=== PATIENT | female | born 1995 | race Two or more races ===

== ENCOUNTER 2018-11-14 16:56 | Emergency (ER) | payer SELFPAY ==
[~2018-11-14] VITALS: Ht 152.4 cm; Wt 72.6 kg
[2018-11-14 17:16] VITALS: BP 120/57
[2018-11-14] MEDS ORDERED: PHENAZOPYRIDINE HCL 100 MG TAB PO ONE (18:00)
[2018-11-14 18:09] LABS: Urine Bacteria FEW /hpf (None Seen); Urine Blood Negative /uL (Negative); Urine Hyaline Cast FEW /lpf (0 - 2); Urine Mucus FEW (None Seen); Urine Specific Gravity 1.034 (1.001-1.035); Urine WBC 64 /hpf (0 - 5)
== END 2018-11-14 18:19 | disposition home or self-care (01) ==
LOC: ER 16:56
DX: N39.0 Urinary tract infection, site not specified (principal)
CPT/HCPCS: 81001; 81025

== ENCOUNTER 2021-12-28 21:41 | Emergency (ER) | payer MEDICAID ==
[~2021-12-28] VITALS: Ht 165.1 cm; Wt 63.8 kg
[2021-12-28 23:20] VITALS: BP 97/64
[2021-12-30] MEDS ORDERED: AMOX-277 PO (09:26)
[2021-12-30] MEDS ORDERED: ACET-1158 PO (09:26)
== END 2021-12-29 05:13 | disposition left against medical advice (07) ==
LOC: ER 21:41
DX: R05.9 Cough, unspecified (principal); R51.9 Headache, unspecified; Z20.822 Contact with and (suspected) exposure to COVID-19; Z53.21 Procedure and treatment not carried out due to patient leaving prior to being seen by health care provider
CPT/HCPCS: 36415

== ENCOUNTER 2021-12-30 06:08 | Emergency (ER) | payer MEDICAID ==
[~2021-12-30] VITALS: Ht 152.4 cm; Wt 72.0 kg
[2021-12-30 07:57] VITALS: BP 124/70
[2021-12-30] MEDS ORDERED: AMOX-277 PO (09:26)
[2021-12-30] MEDS ORDERED: ACET-1158 PO (09:26)
== END 2021-12-30 09:37 | disposition home or self-care (01) ==
LOC: ER 06:08
DX: H66.92 Otitis media, unspecified, left ear (principal); J01.90 Acute sinusitis, unspecified; Z79.899 Other long term (current) drug therapy; Z79.2 Long term (current) use of antibiotics

== ENCOUNTER 2022-12-02 12:52 | Emergency (ER) | payer MEDICAID ==
[~2022-12-02] VITALS: Ht 152.4 cm; Wt 70.3 kg
[~2022-12-02 12:52] MED LIST: ACET500T58 PO; AMOX875T4 PO
[2022-12-02 15:21] VITALS: BP 103/63; PULSE 86; RESP 16; TEMP 97.9; O2SAT 96
[2022-12-02] MEDS ORDERED: DexAMETHasone SOD PHOS 10MG/1ML VIAL INJ IM ONE (15:30)
[2022-12-02] MEDS ORDERED: IBUP-1454 PO (15:50)
[2022-12-02] MEDS ORDERED: AUG875T PO (15:50)
== END 2022-12-02 16:01 | disposition home or self-care (01) ==
LOC: ER 12:52
DX: J06.9 Acute upper respiratory infection, unspecified (principal); Z79.1 Long term (current) use of non-steroidal anti-inflammatories (NSAID); Z79.899 Other long term (current) drug therapy
CPT/HCPCS: 96372; 99283; J1100

== ENCOUNTER 2023-03-05 10:05 | Emergency (ER) | payer MEDICAID ==
[~2023-03-05] VITALS: Ht 152.4 cm; Wt 68.1 kg
[~2023-03-05 10:05] MED LIST changes: +AUG875T PO; +IBUP-1454 PO
[2023-03-05] MEDS ORDERED: KETOROLAC TROMETH 60MG/2ML VIAL IM ONE (10:30)
[2023-03-05] MEDS ORDERED: ONDANSETRON ODT 4 MG TAB PO ONE (10:30)
[2023-03-05 10:31] VITALS: BP 106/58; PULSE 79; RESP 18; TEMP 98.6; O2SAT 99
[2023-03-05 11:18] LABS: Rapid Influenza A Negative (Negative); Rapid Influenza B Negative (Negative)
[2023-03-05 11:35] LABS: COVID19 ANTIGEN SOFIA FIA POSITIVE (NEGATIVE)
[2023-03-05] MEDS ORDERED: ZOFR4T PO (12:14)
[2023-03-05] MEDS ORDERED: ACET500T58 PO (12:14)
[2023-03-05] MEDS ORDERED: BENZ100C97 PO (12:14)
[2023-03-05] MEDS ORDERED: IBUP-1455 PO (12:14)
[2023-03-05] MEDS ORDERED: LORA10CA PO (12:14)
== END 2023-03-05 12:21 | disposition home or self-care (01) ==
LOC: ER 10:05
DX: U07.1 COVID-19 (principal)
CPT/HCPCS: 36415; 71046; 87426; 87804; 96372; 99284; J1885; Q0162

== ENCOUNTER 2024-10-26 11:27 | Emergency (ER) | payer MEDICAID ==
[~2024-10-26] VITALS: Ht 152.4 cm; Wt 68.7 kg
[~2024-10-26 11:27] MED LIST changes: +BENZ100C97 PO; +IBUP-1455 PO; +LORA10CA PO; +ZOFR4T PO
[2024-10-26] MEDS ORDERED: BENZ100C97 PO (12:16)
[2024-10-26] MEDS ORDERED: PROM1SOL4 PO (12:16)
[2024-10-26] MEDS ORDERED: IBUP1TAB5 PO (12:16)
[2024-10-26] MEDS ORDERED: CETI5TAB6 PO (12:16)
--- NOTE | 2024-10-26 12:17 | ED.PDOC ---
SOB-HPI HPI Comments 29-year-old female no pertinent MHx presents with a chief complaint of a n onproductive cough, rhinorrhea, sore throat x1 day. Symptoms are rated as mild to moderate No therapies tried at this time No other complaint or concerns Denies any sick contacts Denies fevers chills night sweats unintentional weight loss Denies persistent chest pain, shortness of breath, leg swelling Denies history of asthma nor any breathing conditions Denies history of pneumonia Denies recent international travel Chief Complaint: Flu like Time Seen by MD: 12:08 Primary Care Provider: NONE Reviewed notes: Nurses Notes, Medications, Allergies Information Source: Patient Mode of Arrival: Ambulatory Severity: Mild Timing: Hours Duration: Since onset, Hours Context: At Rest PE Risk Factors: None History of: None Prehospital treatment: None Modifying Factors: Nothing Associated Signs and Symptoms: Cough, Sore Throat Past Medical History PAST MEDICAL HISTORY: Denies Surgical History: Denies all surgeries HEALTHCARE CONSULTING MANAGER History: No Pertinent HEALTHCARE CONSULTING MANAGER History Family History Family History: Unknown Social History Smoker: Non-Smoker Alcohol: Denies ETOH Use Drugs: Denies Drug Use Lives In: Home Constitutional: reports: chills; denies: diaphoresis, fatigue, fever, malaise, sweats, weakness, others EENTM: denies: blurred vision, double vision, ear bleeding, ear discharge, ear drainage, ear pain, ear ringing, eye pain, eye redness, hearing loss, mouth pain, mouth swelling, nasal discharge, nose bleeding, nose congestion, nose pain, photophobia, tearing, throat pain, throat swelling, voice changes, others Respiratory: reports: cough; denies: hemoptysis, orthopnea, SOB at rest, shortness of breath, SOB with excertion, stridor, wheezing, others Cardiovascular: denies: chest pain, dizzy spells, diaphoresis, Dyspnea on exertion, edema, irregular heart beat, left arm pain, lightheadedness, palpitations, PND, syncope, others Gastrointestinal: denies: abdomen distended, abdominal pain, blood streaked bowels, constipated, diarrhea, dysphagia, difficulty swallowing, hematemesis, melena, nausea, poor appetite, poor fluid intake, rectal bleeding, rectal pain, vomiting, others Genitourinary: denies: abnormal vagina bleeding, burning, dyspareunia, dysuria, flank pain, frequency, hematuria, incontinence, pain, , vagina discharge, urgency, others Neurological: denies: dizziness, fainting, headache, left sided numbness, left sided weakness, numbness, paresthesia, pre-existing deficit, right sided numbness, right sided weakness, seizure, speech problems, tingling, tremors, w eakness, others Musculoskeletal: denies: back pain, gout, joint pain, joint swelling, muscle pain, muscle stiffness, neck pain, others Integumetry: denies: bruises, change in color, change in hair/nails, dryness, laceration, lesions, lumps, rash, wounds, others Allergic/Immunocompromised: denies: Difficulty Healing, Frequent Infections, Hives, Itching, others Hematologic/Lymphatic: denies: anemia, blood clots, easy bleeding, easy bruising, swollen glands, others Endocrine: denies: excessive hunger, excessive sweating, excessive thirst, excessive urination, flushing, intolerance to cold, intolerance to heat, unexplained weight gain, unexplained weight loss, others Psychiatric: denies: anxiety, bipolar disorder, depression, hopeless, panic disorder, schizophrenia, sleepless, suicidal, others All Other Systems: Reviewed and Negative Physical Exam General Appearance: No Apparent Distress, Normal HEENT: Normal ENT Inspection, Pharynx Normal, TMs Normal Neck: Full Range of Motion, Non-Tender, Normal, Normal Inspection Respiratory: Chest Non-Tender, Lungs Clear, No Accessory Muscle Use, No Respiratory Distress, Normal Breath Sounds, Other (No tonsillar exidate, uvular Midline, MMM, no airway obstruction) Cardiovascular: No Murmur, No Gallop, Normal Peripheral Pulses, Regular Rate/Rhythm Breast Exam: Deferred Gastrointestinal: Non Tender, No Pulsatile Mass, Normal Bowel Sounds, Soft Genitalia: Deferred Pelvic: Deferred Rectal: Deferred Extremities: No calf tenderness, Normal range of motion, Non-tender, No pedal edema Musculoskeletal : Apperance: Normal Neurologic: Alert, No Motor Deficits, Normal Mood Cerebellar Function: Normal Reflexes: Normal Skin: Dry, Normal Color, Warm Lymphatic: No Adenopathy Was a procedure done? Was a procedure done?: No Differential Dx Differential Diagnosis: Anxiety, Asthma, Bronchitis, Sinusitis, Allergic Rhinitis, Otitis Media, Pharyngitis X-Ray, Labs, Meds, VS Vital Signs Date Time Temp Pulse Resp B/P (MAP) Pulse Ox O2 Delivery O2 Flow Rate FiO2 10/26/24 12:28 98.2 79 16 101/60 (74) 97 98.2 10/26/24 12:28 79 16 97 Room Air 10/26/24 12:00 98.3 78 16 106/57 (73) 96 98.3 X-Ray, Labs, Meds, VS Comment Patient arrives alert and oriented, ABC's intact, afebrile, vital signs stable, saturating well in room air The patient is overall well-appearing nontoxic on exam. On physical exam, respirations even and unlabored, clear to auscultation bilaterally. Oxygen stable on room air. Chest x-ray was obtained and interpreted independently by myself as not showing focal consolidation or lobar pneumonia Low suspicion of strep pharyngitis given physical exam findings and patient's presenting symptoms No signs of meningismus on exam Overall, the patient is well hydrated and nontoxic. Plan for symptomatic control for fever and pain as needed. The patient was able to tolerate p.o. intake in the ED. at this time, patient is safe for discharge home. The exam findings and plan discussed. We will discharge home with PCP follow up and strict return precautions. Discussed that cough can linger up to 6 weeks after viral URI Supportive care and return precautions discussed Counseled viral infection and explained that antibiotics would not be helpful in resolving the illness sooner. Recommended vitamin C, rest, handwashing, and symptomatic care. Expect 2-week course with possibly of cough lingering up to 6 weeks. Nonpharmacological remedies for fluids has been recommended as well Patient is stable for discharge at this time. External notes reviewed. Test results and diagnostic imaging interpreted. All diagnostic findings, discharge care, education and instructions provided Follow-up with PCP in 2 to 3 days Patient verbalized understanding and agreed to treatment plan Vital signs stable, afebrile, no acute distress noted Patient ambulatory with strong steady gait Advised to return precautions for any new or worsening symptoms, return to ER immediately for re-evaluation Patient is aware that the purpose of this visit was for an acute medical emergency requiring emergent stabilization. Chronic conditions, including malignancies have not been ruled out. Patient is instructed to follow up with PCP as directed and discharge instructions for continued care and workup. If unable to arrange follow-up, patient is to return to the emergency department for reassessment. Patient (parent or legal guardian if applicable) was given verbal and written discharge instructions and acknowledges understanding. Additional MDM Review of External, Non-ED records: External records reviewed. Discussion with independent historian (EMS, family) history obtained from the patient/parents (if applicable) at bedside Chronic conditions affecting care: None Social determinants of health affecting care: None Consideration of admission (observation or admission): I considered escalation of care to admission for this patient, however given the reassuring workup, the patient is safe for outpatient management. Discussion with the Radiology: No Tests considered but not performed: Prescription medication considered but not given: 12 lead EKG interpretation: Time of 1ST Reevaluation: 12:14 Reevaluation 1ST: Improved Patient Education/Counseling: Diagnosis, Treatment Family Education/Counseling: Diagnosis, Treatment SEPSIS Sepsis Screen Vital Signs Date Time Temp Pulse Resp B/P (MAP) Pulse Ox O2 Delivery O2 Flow Rate FiO2 10/26/24 12:28 98.2 79 16 101/60 (74) 97 98.2 10/26/24 12:28 79 16 97 Room Air 10/26/24 12:00 98.3 78 16 106/57 (73) 96 98.3 Departure 1 Departure Time of Disposition: 12:14 Impression: Primary Impression: Viral syndrome Disposition: 01 HOME / SELF CARE / HOMELESS Condition: Fair e-Prescriptions Ibuprofen Micronized (Ibuprofen) 600 Mg Tab 600 MG PO TIDPRN PRN for 10 Days, #30 TAB 0 Refills Prov: VINCENZO CAMPBELL NP 10/26/24 Promethazine-Dm (Promethazine Dm 6.25-15 mg/5Ml) 1 Autumn Autumn 5 ML PO TIDPRN PRN for 10 Days, #150 ML 0 Refills Prov: VINCENZO CAMPBELL AEROPHYSICS ENGINEER 10/26/24 Benzonatate (Benzonatate) 100 Mg Cap 1 CAP PO TID for 10 Days, #30 CAP 0 Refills Prov: VINCENZO CAMPBELL NP 10/26/24 Cetirizine Hcl (Cetirizine Hcl) 5 Mg Tab 10 MG PO DAILY for 10 Days, #20 TAB 0 Refills Prov: VINCENZO CAMPBELL NP 10/26/24 Critical Care Note Critical Care Time?: No Stability Stability form required: No Heart Score Heart Score: Heart Score Response (Comments) Value History N/A 0 EKG N/A 0 Age N/A 0 Risk Factors N/A 0 Troponin N/A 0 Total 0 I personally scribed for VINCENZO CAMPBELL NP ([email or web address]) on 10/26/24 at 12:23. Electronically submitted by Mukund Khan ([email or web address]). VINCENZO CAMPBELL NP Oct 26, 2024 12:17
[2024-10-26 12:28] VITALS: BP 101/60; PULSE 79; RESP 16; TEMP 98.2; O2SAT 97
== END 2024-10-26 13:24 | disposition home or self-care (01) ==
LOC: ER 11:27
DX: B34.9 Viral infection, unspecified (principal)

== ENCOUNTER 2025-01-09 11:47 | Emergency (ER) | payer MEDICAID ==
[~2025-01-09] VITALS: Ht 152.4 cm; Wt 74.9 kg
[~2025-01-09 11:47] MED LIST changes: +CETI5TAB6 PO; +IBUP1TAB5 PO; +PROM1SOL4 PO
[2025-01-09 13:55] LABS: COVID19 ANTIGEN SOFIA FIA NEGATIVE (NEGATIVE)
[2025-01-09] MEDS ORDERED: PROM1SOL4 PO (14:47)
[2025-01-09] MEDS ORDERED: AZIT-185 PO (14:47)
--- NOTE | 2025-01-09 14:47 | ED.PDOC ---
History of Present Illness HPI Comments 29-year-old female patient presents to the clinic for cough, fever, runny nose. Patient states that cough is productive of green-colored phlegm. Patient states his symptoms started 6-7 days ago. Chief Complaint: Flu like Time Seen by MD: 12:25 Primary Care Provider: PATRICIA Allergies: Coded Allergies: NO KNOWN ALLERGIES (Unverified , 11/14/18) Home Meds Active Scripts Promethazine-Dm (Promethazine Dm 6.25-15 mg/5Ml) 1 Autumn Autumn, 5 ML PO TID for 7 Da ys, #105 ML Prov:CELIO IRVIN MANAGER OB 01/09/25 Azithromycin (ZITHROMAX TABLET) 250 Mg Tb, 250 MG PO DAILY for 5 Days, #6 TAB Prov:CELIO IRVIN [facility] 01/09/25 Ibuprofen Micronized (Ibuprofen) 600 Mg Tab, 600 MG PO TIDPRN PRN for 10 Days, #30 TAB 0 Refills Prov:VINCENZO CAMPBELL COATER 10/26/24 Promethazine-Dm (Promethazine Dm 6.25-15 mg/5Ml) 1 Autumn Autumn, 5 ML PO TIDPRN PRN for 10 Days, #150 ML 0 Refills Prov:VINCENZO CAMPBELL COATER 10/26/24 Benzonatate (Benzonatate) 100 Mg Cap, 1 CAP PO TID for 10 Days, #30 CAP 0 Refills Prov:VINCENZO CAMPBELL COATER 10/26/24 Cetirizine Hcl (Cetirizine Hcl) 5 Mg Tab, 10 MG PO DAILY for 10 Days, #20 TAB 0 Refills Prov:VINCENZO CAMPBELL COATER 10/26/24 Benzonatate (Benzonatate) 100 Mg Cap, 1 CAP PO TID, #30 CAP Prov:NOLA CARRASCO PAC 03/05/23 Acetaminophen (Acetaminophen) 500 Mg Tab, 500 MG PO Q4HP PRN, #30 TAB Prov:NOLA CARRASCO PAC 03/05/23 Ibuprofen Micronized (Ibuprofen) 800 Mg Tab, 800 MG PO Q8HP PRN, #20 TAB Prov:NOLA CARRASCO PAC 03/05/23 Loratadine (Claritin) 10 Mg Cap, 10 MG PO DAILY for 14 Days, #14 CAP Prov:NOLA CARRASCO PAC 03/05/23 Ondansetron Odt 4MG Tab (ZOFRAN PO) 4 Mg Tb, 4 MG PO Q6HP PRN, #30 TAB ODT TAB-DISSOLVE IN MOUTH, THEN SWALLOW Prov:NOLA CARRASCO PAC 03/05/23 Ibuprofen (Ibuprofen) 600 Mg Tab, 600 MG PO TID for 10 Days, #30 TAB 0 Refills Prov:VINCENZO CAMPBELL COATER 12/02/22 Amoxicillin & Pot Clavulanate (AUGMENTIN TABLET) 875 Mg Tb, 875 MG PO BID for 10 Days, #20 TAB 0 Refills Prov:VINCENZO CAMPBELL COATER 12/02/22 Acetaminophen (Acetaminophen) 500 Mg Tab, 500 MG PO QIDP, #30 TAB 0 Refills Prov:GABRIELLA KELLY 12/30/21 Amoxicillin & Pot Clavulanate (Amoxicillin/Potassium Cla) 875 Mg Tab, 1 TAB PO BID for 7 Days, #14 TAB 0 Refills Prov:GABRIELLA KELLY 12/30/21 Mode of Arrival: Ambulatory Severity: Mild Timing: Days Past Medical History PAST MEDICAL HISTORY: Denies Surgical History: Denies all surgeries CHILD CARE History: No Pertinent CHILD CARE History Family History Family History: Reviewed,noncontributory to illness, Unknown Social History Smoker: Non-Smoker Alcohol: Denies ETOH Use Drugs: Denies Drug Use Lives In: Home Constitutional: denies: chills, diaphoresis, fatigue, fever, malaise, sweats, weakness, others EENTM: reports: nasal discharge, nose congestion Respiratory: reports: cough Cardiovascular: denies: chest pain, dizzy spells, diaphoresis, Dyspnea on exertion, edema, irregular heart beat, left arm pain, lightheadedness, palpitations, PND, syncope, others Gastrointestinal: denies: abdomen distended, abdominal pain, blood streaked bowels, constipated, diarrhea, dysphagia, difficulty swallowing, hematemesis, melena, nausea, poor appetite, poor fluid intake, rectal bleeding, rectal pain, vomiting, others Genitourinary: denies: abnormal vagina bleeding, burning, dyspareunia, dysuria, flank pain, frequency, hematuria, incontinence, pain, , vagina discharge, urgency, others Neurological: denies: dizziness, fainting, headache, left sided numbness, left sided weakness, numbness, paresthesia, pre-existing deficit, right sided numbness, right sided weakness, seizure, speech problems, tingling, tremors, weakness, others Musculoskeletal: denies: back pain, gout, joint pain, joint swelling, muscle pain, muscle stiffness, neck pain, others Integumetry: denies: bruises, change in color, change in hair/nails, dryness, laceration, lesions, lumps, rash, wounds, others Allergic/Immunocompromised: denies: Difficulty Healing, Frequent Infections, Hives, Itching, others Hematologic/Lymphatic: denies: anemia, blood clots, easy bleeding, easy bruising, swollen glands, others Endocrine: denies: excessive hunger, excessive sweating, excessive thirst, excessive urination, flushing, intolerance to cold, intolerance to heat, unexplained weight gain, unexplained weight loss, others Psychiatric: denies: anxiety, bipolar disorder, depression, hopeless, panic disorder, schizophrenia, sleepless, suicidal, others All Other Systems: Reviewed and Negative Physical Exam General Appearance: No Apparent Distress, Normal HEENT: Normal ENT Inspection, Pharynx Normal, TMs Normal Neck: Full Range of Motion, Non-Tender, Normal, Normal Inspection Respiratory: Chest Non-Tender, Lungs Clear, No Accessory Muscle Use, No Respiratory Distress, Normal Breath Sounds Cardiovascular: No Edema, No JVD, No Murmur, No Gallop, Normal Peripheral Pulses, Regular Rate/Rhythm Breast Exam: Deferred Gastrointestinal: No Organomegaly, Non Tender, No Pulsatile Mass, Normal Bowel Sounds, Soft Genitalia: Deferred Pelvic: Deferred Rectal: Deferred Extremities: No calf tenderness, Normal capillary refill, Normal inspection, Normal range of motion, Non-tender, No pedal edema Musculoskeletal : Apperance: Normal Neurologic: Alert, hide puller II-XII nml as Tested, No Motor Deficits, Normal Affect, Normal Mood, No Sensory Deficits Cerebellar Function: Normal Reflexes: Normal Skin: Dry, Normal Color, Warm Lymphatic: No Adenopathy Was a procedure done? Was a procedure done?: No Differential Dx Considerations may include: upper respiratory illness, bronchitis, strep throat, X-Ray, Labs, Meds, VS Vital Signs Date Time Temp Pulse Resp B/P (MAP) Pulse Ox O2 Delivery O2 Flow Rate FiO2 01/09/25 14:53 98.0 63 18 103/62 (76) 99 98.0 01/09/25 14:53 Room Air* 0 21 01/09/25 11:52 98.0 90 16 103/64 94 98.0 Lab Test 01/09/25 12:54 Range/Units Influenza Type A Antigen Negative Negative Influenza Type B Antigen Negative Negative SARS-CoV-2 Antigen (Rapid) Negative NEGATIVE X-Ray, Labs, Meds, VS Comment On re-evaluation patient has symptomatic improvement. Patient is stable for discharge at this time. All test results and diagnostic imaging have been interpreted. All diagnostic findings, discharge care, and education instruction provided to the patient. Follow-up with PCP in 2-3 days Patient verbalized understanding, discharge instructions and agrees to treatment plan Vital signs are stable Patient is ambulatory Patient advised of which symptoms necessitate a return visit to the emergency room. Patient to return emergency room for any new worsening symptoms. Patient is aware that the purpose of this visit is for an acute medical emergency requiring emergent stabilization. Chronic conditions, including malignancies have not been ruled out. Patient is instructed to follow up with PCP as directed for continued care and workup. If unable to arrange follow up, patient is to return to the emergency room for reassessment. Patient was given verbal and written discharge instructions and acknowledges understanding Time of 1ST Reevaluation: 14:45 Reevaluation 1ST: Improved Patient Education/Counseling: Diagnosis, Treatment, Prognosis Family Education/Counseling: No Family Present SEPSIS Sepsis Screen Date sepsis recognized/suspect: Jan 09, 2025 Time Sepsis recognized/suspect: 1150 Recent Procedure: No On Antibiotic Therapy: No Respiratory Rate >20: No Heart Rate >90: No Temp<36 C (96.8 F) or >38.3 C: No SBP <90 or MAP <65 mmHG: No New Acute Mental Status Change: No Is the patient on CPAP, BIPAP,: No Vital Signs Date Time Temp Pulse Resp B/P (MAP) Pulse Ox O2 Delivery O2 Flow Rate FiO2 01/09/25 14:53 98.0 63 18 103/62 (76) 99 98.0 01/09/25 14:53 Room Air* 0 01/09/25 11:52 98.0 90 16 103/64 94 98.0 Departure 1 Departure Time of Disposition: 14:47 Impression: Primary Impression: URI (upper respiratory infection) Qualified Codes: J06.9 - Acute upper respiratory infection, unspecified Disposition: 01 HOME / SELF CARE / HOMELESS Condition: Stable Additional Instructions: Discharge Note: Continue on your medications. Drink plenty of fluids. Follow up with your primary Dr. Take your prescriptions as ordered. If your condition becomes worse call and follow up with your primary DrRaymond for instructions or return to the ER if needed. Thank you for visiting [facility]. e-Prescriptions Promethazine-Dm (Promethazine Dm 6.25-15 mg/5Ml) 1 Autumn Autumn 5 ML PO TID for 7 Days, #105 ML Prov: CELIO IRVIN 01/09/25 Azithromycin (ZITHROMAX TABLET) 250 Mg Tb 250 MG PO DAILY for 5 Days, #6 TAB Prov: CELIO IRVIN 01/09/25 Critical Care Note Critical Care Time?: No Stability Stability form required: No Heart Score Heart Score: Heart Score Response (Comments) Value History N/A 0 EKG N/A 0 Age N/A 0 Risk Factors N/A 0 Troponin N/A 0 Total 0 CELIO IRVIN MANAGER OB Jan 09, 2025 14:47
[2025-01-09 14:53] VITALS: BP 103/62; PULSE 63; RESP 18; TEMP 98; O2SAT 99
== END 2025-01-09 14:53 | disposition home or self-care (01) ==
LOC: ER 11:47
DX: J06.9 Acute upper respiratory infection, unspecified (principal); Z79.899 Other long term (current) drug therapy; Z20.822 Contact with and (suspected) exposure to COVID-19
CPT/HCPCS: 36415; 87426; 87804